=== PATIENT | male | born 1990 | race Caucasian/White ===

== ENCOUNTER 2017-07-19 18:56 | Emergency (ER) | payer OTHER ==
[2017-07-19] MEDS ORDERED: HYDROmorphone 1 MG/ML Syringe IVPUSH ONE (19:13)
[2017-07-19] MEDS ORDERED: fentaNYL 100 MCG/2 ML SDV IVPUSH ONE ×2 (19:42→21:02)
[2017-07-19] MEDS ORDERED: Ondansetron 4 MG/2 ML SDV IV ONE (19:42)
[2017-07-19 19:55] LABS: SODIUM,NA 139 mmol/L (135-145)
[2017-07-19 19:56] LABS: CHLORIDE,CL 102 mmol/L (101-111)
[2017-07-19] MEDS ORDERED: Diphtheria,Pertussis(Acell),Tetanus Vaccine 0.5 ML SDV IM ONE (20:04)
[2017-07-19] MEDS ORDERED: Lactated Ringers 1,000 ML IV ONE ×2 (20:12→20:45)
[2017-07-19] MEDS: fentaNYL 100 MCG/2 ML SDV IVPUSH ONE ×2 (20:40→21:06)
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
== END 2017-07-19 21:15 ==
LOC: DL.ED 18:56
DX: T33.821A Superficial frostbite of right foot, initial encounter (principal); T33.822A Superficial frostbite of left foot, initial encounter; T68.XXXA Hypothermia, initial encounter; S90.411A Abrasion, right great toe, initial encounter; X31.XXXA Exposure to excessive natural cold, initial encounter
CPT/HCPCS: 36415; 80053; 82550; 85025; 86140; 90471; 90715; 96361; 96374; 96375; 96376; 99285; G0480; J1170; J2405; J3010; J7120

== ENCOUNTER 2017-07-30 20:08 | Emergency (ER) | payer OTHER ==
[2017-07-30] MEDS ORDERED: HYDROmorphone 1 MG/ML Syringe IM ONE (21:07)
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
[2017-07-30] MEDS ORDERED: HYDROmorphone 1 MG/ML Syringe IV ONE (22:04)
[2017-07-30] MEDS ORDERED: Sodium Chloride 0.9% 10 ML Syringe FLUSH PRN (22:05)
[2017-07-30] MEDS ORDERED: fentaNYL 100 MCG/2 ML SDV IVPUSH ONE (22:07)
[2017-07-31] MEDS ORDERED: HYDROmorphone 1 MG/ML Syringe IVPUSH ONE (00:31)
[2017-07-31] MEDS ORDERED: Acetaminophen/HYDROcodone 325-10 MG Tab ONE (02:19)
== END 2017-07-31 00:42 | disposition home or self-care (01) ==
LOC: DL.ED 20:08
DX: T33.821S Superficial frostbite of right foot, sequela (principal); T33.822S Superficial frostbite of left foot, sequela; F17.210 Nicotine dependence, cigarettes, uncomplicated; X58.XXXS Exposure to other specified factors, sequela
CPT/HCPCS: 80305; 81001; 96374; 96375; 96376; 99284; J1170; J3010; J7050

== ENCOUNTER 2017-07-31 01:15 | Emergency (ER) | payer OTHER ==
[2017-07-31] MEDS ORDERED: Acetaminophen/HYDROcodone 325-10 MG Tab PO ONE (01:16)
[2017-07-31] MEDS ORDERED: Sodium Chloride 0.9% 1,000 ML IV ONE (01:22)
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
== END 2017-07-31 02:37 | disposition home or self-care (01) ==
LOC: DL.ED 01:15
DX: I95.2 Hypotension due to drugs (principal); T33.821S Superficial frostbite of right foot, sequela; F17.210 Nicotine dependence, cigarettes, uncomplicated
CPT/HCPCS: 96365; 99283; J7030

== ENCOUNTER 2017-07-31 23:31 | Emergency (ER) | payer OTHER | END 2017-08-01 00:46 | disposition left against medical advice (07) | LOC: DL.ED 23:31 | DX: Z53.21 Procedure and treatment not carried out due to patient leaving prior to being seen by health care provider (principal) ==

== ENCOUNTER 2017-08-11 00:54 | Observation (INO) | payer OTHER ==
[2017-08-11] MEDS ORDERED: Acetaminophen/oxyCODONE 325-5 MG Tab PO ONE (01:44)
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
[2017-08-11] MEDS ORDERED: oxyCODONE 5 MG Tab PO PRN (02:39)
[2017-08-11] MEDS ORDERED: Sodium Chloride 0.9% 1,000 ML IV SCH (02:45)
--- NOTE | 2017-08-11 03:09 | PCM.HP ---
H&P History of Present Illness - General Date of Service: 08/11/17 Admit Problem/Dx: Admission Diagnosis/Problem Admission Diagnosis/Problem Frostbite Source of Information: Patient History Limitations: Reports: No Limitations - History of Present Illness Initial Comments - Free Text/Narative: 27 yo M, no sig PMH who developed frostbite in bilateral feet one month ago. Comes back to the ED today with pain both feet, darkening of the hallux on both feet. Pain is 10/10 prevents him from sleeping at night He has run out of O/P pain meds Has appointment at [facility] next week No fever, no nausea or vomiting, no malaise Improves with: Reports: None Worsens with: Reports: None Right Feet Pain Score (Numeric/FACES): 10 - Related Data Allergies/Adverse Reactions: Allergies Allergy/AdvReac Type Severity Reaction Status Date / Time No Known Allergies Allergy Verified 08/11/17 00:59 Home Medications: Home Meds Ibuprofen 600 mg PO BID 08/11/17 [History] oxyCODONE 5 mg PO BID 08/11/17 [History] Past Medical History - Past Health History Medical/Surgical History: Denies Medical/Surgical History Social & Family History - Family History Family Medical History: Noncontributory - Tobacco Use Smoking Status *Q: Heavy Tobacco Smoker Years of Tobacco use: 5 Packs/Tins Daily: 0.5 - Caffeine Use Caffeine Use: Reports: Coffee - Alcohol Use Days Per Week of Alcohol Use: 1 Number of Drinks Per Day: 3 Total Drinks Per Week: 3 - Recreational Drug Use Recreational Drug Use: No H&P Review of Systems - Review of Systems: Review Of Systems: See Below General: Reports: No Symptoms HEENT: Reports: No Symptoms Pulmonary: Reports: No Symptoms Cardiovascular: Reports: No Symptoms Gastrointestinal: Reports: No Symptoms Genitourinary: Reports: No Symptoms Exam - Exam Exam: See Below - Vital Signs Vital Signs: Last Vital Signs Temp 37.1 C 08/11/17 02:04 Pulse 63 08/11/17 02:04 Resp 18 08/11/17 02:04 BP 110/61 08/11/17 02:04 Pulse Ox 96 08/11/17 02:04 Weight: 90.628 kg - Exam General: Alert, Oriented, 4 HEENT: PERRLA, Hearing Intact, Mucosa Moist & [place], Nares Patent, Normal Nasal Septum, Posterior Pharynx Clear, Conjunctiva Clear, EOMI, EACs Clear, TMs Clear Neck: Supple, Trachea Midline, 2 Lungs: Clear to Auscultation, Normal Respiratory Effort Cardiovascular: Regular Rate, Regular Rhythm Extremities: Other (right hallux and second toes are hyperpigmented, gangrenous. left hallux is hyperpigmented and gangrenous) *Q Meaningful Use (ADM) - VTE *Q VTE Criteria *Q: - Stroke *Q Stroke Criteria *Q: - AMI *Q AMI Criteria *Q: - Problem List (1) Frostbite of feet, bilateral SNOMED Code(s): 23462322 ICD Code: T33.821A - SUPERFICIAL FROSTBITE OF RIGHT FOOT, INITIAL ENCOUNTER; T33.822A - SUPERFICIAL FROSTBITE OF LEFT FOOT, INITIAL ENCOUNTER Status: Acute Current Visit: Yes Qualifiers: Encounter type: subsequent encounter Qualified Code(s): T33.821D - Superficial frostbite of right foot, subsequent encounter; T33.822D - Superficial frostbite of left foot, subsequent encounter; T33.822D - Superficial frostbite of left foot, subsequent encounter Problem List Initiated/Reviewed/Updated: Yes Orders Last 24hrs: Active Orders 24 hr Category Date Time Status CULTURE BLOOD [BC] Stat Lab 08/11/17 02:44 Ordered CULTURE BLOOD [BC] Stat Lab 08/11/17 02:44 Ordered LACTIC ACID [CHEM] Stat Lab 08/11/17 02:43 Ordered Blood Culture x2 Reflex Set [OM.PC] Stat Oth 08/11/17 02:44 Ordered Medication Orders Heparin Sodium (Porcine) (Heparin Sodium) 5,000 units SUBCUT Q8HR BRETT Sodium Chloride (Normal Saline) 1,000 mls @ 125 mls/hr IV ASDIRECTED BRETT Oxycodone HCl (Oxycodone) 5 mg PO Q4H PRN PRN Reason: Pain Assessment/Plan Comment:: # Frostbite => Gangrene No signs of sepsis check CBC, lactic acid, BMP blood cultures x [address] Donovan (ED) and Dr. Rivera (Ortho) of [facility] and they will accept the patient for further evaluation # DVT ppx SC heparin
--- NOTE | 2017-08-11 03:11 | PCM.DCSUM1 ---
Discharge Summary - Hospital Course Free Text/Narrative:: 27 yo admitted briefly for frostbite => gangrene Transferred to [facility] for further evaluation. - Discharge Data Discharge Date: 08/11/17 Discharge Disposition: DC/Tfer to Acute Hospital 02 Condition: Serious - Discharge Diagnosis/Problem(s) (1) Frostbite of feet, bilateral SNOMED Code(s): 22612972 ICD Code: T33.821A - SUPERFICIAL FROSTBITE OF RIGHT FOOT, INITIAL ENCOUNTER; T33.822A - SUPERFICIAL FROSTBITE OF LEFT FOOT, INITIAL ENCOUNTER Status: Acute Current Visit: Yes Qualifiers: Encounter type: subsequent encounter Qualified Code(s): T33.821D - Superficial frostbite of right foot, subsequent encounter; T33.822D - Superficial frostbite of left foot, subsequent encounter; T33.822D - Superficial frostbite of left foot, subsequent encounter - Patient Instructions Diet: Usual Diet as Tolerated Activity: As Tolerated Showering/Bathing: No Showering - Discharge Plan Home Medications: Home Meds Ibuprofen 600 mg PO BID 08/11/17 [History] oxyCODONE 5 mg PO BID 08/11/17 [History] Forms: ED Department Discharge - Patient Data Vitals - Most Recent: Last Vital Signs Temp 37.1 C 08/11/17 02:04 Pulse 63 08/11/17 02:04 Resp 18 08/11/17 02:04 BP 110/61 08/11/17 02:04 Pulse Ox 96 08/11/17 02:04 Weight - Most Recent: 90.628 kg Med Orders - Current: Current Medications Heparin Sodium (Porcine) (Heparin Sodium) 5,000 units SUBCUT Q8HR BRETT Sodium Chloride (Normal Saline) 1,000 mls @ 125 mls/hr IV ASDIRECTED BRETT Oxycodone HCl (Oxycodone) 5 mg PO Q4H PRN PRN Reason: Pain Discontinued Medications Oxycodone/Acetaminophen (Percocet 325-5 Mg) 1 tab PO ONETIME ONE Stop: 08/11/17 01:45 Last Admin: 08/11/17 01:49 Dose: 1 tab *Q Meaningful Use (DIS) - VTE *Q VTE Criteria *Q: - Stroke *Q Stroke Criteria *Q: - AMI *Q AMI Criteria *Q:
[2017-08-11 03:33] LABS: CHLORIDE,CL 102 mmol/L (101-111); SODIUM,NA 135 mmol/L (135-145)
[2017-08-11] MEDS ORDERED: Heparin Sodium 5,000 Units/ML Vial SUBCUT SCH (06:00)
== END 2017-08-11 04:07 ==
LOC: DL.ED 00:54 → UNDOADMOB 02:06 → DL.MS 02:06 → EEVIPCON 02:42
PROVIDERS: ADMIT Hospitalist; ATTEND Hospitalist
DX: T34.822A Frostbite with tissue necrosis of left foot, initial encounter (principal); T34.821A Frostbite with tissue necrosis of right foot, initial encounter; F17.290 Nicotine dependence, other tobacco product, uncomplicated; X31.XXXA Exposure to excessive natural cold, initial encounter
CPT/HCPCS: 36415; 73630; 80048; 83605; 85025; 87040; 87070; 87077; 87186; 96360; 99283; 99285; A9270; J7030